=== PATIENT | male | born 1955 | race Hispanic/Latino ===

== ENCOUNTER → 2025-04-11 | Day surgery (SDC) | payer MEDICARE ==
[2025-04-09 10:16] LABS: BASOPHILS % 1.1 % (0.0-1.0); EOSINOPHILS % 4.0 % (0.0-6.0); LYMPHOCYTES % 24.9 % (18.0-39.1); MONOCYTES % 12.1 % (4.4-11.3); NEUTROPHILS % 56.8 % (38.7-80.0); RED CELL DISTRIBUTION WIDTH 13.1 % (11.7-14.4)
[~2025-04-11] MED LIST: DIOVAN160 MG PO; GLYCOPYRROLATE INJ 0.2 MG/ML VIAL ONE; HYDRALAZINE HCL50 MG PO; LABETALOL HCL100 MG PO; LACTATED RINGER'S 1,000 ML ONE; LIDOCAINE HCL 2% LOCAL INJ 5 ML SDV VIAL INJ ONE; MAGNESIUM OXID400 MG PO; METOCLOPRAMIDE HCL 10 MG/2ML VIAL ONE; NEURONTIN300 MG PO; PHENYLEPHRINE HCL 1% 10 MG/ML VIAL ONE; PROPOFOL IV EMULSION 10 MG/ML 20 ML VIAL ONE; VITAMIN B-121000 MC2 PO
[2025-04-11 09:35] VITALS: TEMP 97.8
[2025-04-11 09:50] VITALS: BP 114/62; PULSE 72; RESP 15; O2SAT 97
== END | disposition home or self-care (01) ==
LOC: OR 06:50
PROVIDERS: ATTEND Internal Medicine Gastroenterology
DX: Z12.11 Encounter for screening for malignant neoplasm of colon (principal); D12.3 Benign neoplasm of transverse colon; D12.4 Benign neoplasm of descending colon; K64.8 Other hemorrhoids; I10 Essential (primary) hypertension; Z71.89 Other specified counseling; F17.210 Nicotine dependence, cigarettes, uncomplicated; Z71.6 Tobacco abuse counseling; Z01.810 Encounter for preprocedural cardiovascular examination; Z01.812 Encounter for preprocedural laboratory examination; Z79.899 Other long term (current) drug therapy; Z68.29 Body mass index [BMI] 29.0-29.9, adult; Z71.3 Dietary counseling and surveillance
CPT/HCPCS: 36415; 45380; 45385; 85025; 93005; J2003; J2371; J2704; J2765; J7121; 45378